=== PATIENT | female | born 1950 | race Caucasian/White ===

== ENCOUNTER 2016-10-23 12:47 | Emergency (ER) | payer OTHER ==
[~2016-10-23] VITALS: Ht 165.1 cm; Wt 97.3 kg
[~2016-10-23 12:47] MED LIST: AMLO-511 PO; HYDR-3965 PO; ISOS60TA4 PO; LEVO75 PO; LISI-660 PO; METF500T4 PO; OXYB5 PO; PANT40TA25 PO; PARO20TA24 PO; PRAV40 PO; TRAZ-147 PO
[2016-10-23 13:14] LABS: BASOPHILS # (AUTO) 0.04 K/uL (0.00-0.20); BASOPHILS % (AUTO) 0.5 % (0.0-2.0); EOSINOPHILS # (AUTO) 0.15 K/uL (0.00-0.70); EOSINOPHILS % (AUTO) 1.85 % (1.0-6.0); HEMATOCRIT 42.9 % (36-46); HEMOGLOBIN 14.1 g/dL (12.0-16.0); LYMPHOCYTES % (AUTO) 23.7 % (22.0-44.0); MEAN CORPUSCULAR HEMOGLOBIN 28.9 pg (26.0-34.0); MEAN CORPUSCULAR HGB CONC 32.8 G/dL (31.0-37.0); MEAN CORPUSCULAR VOLUME 88 fL (80-100); MONOCYTES # (AUTO) 0.3 K/uL (0.1-1.0); MONOCYTES % (AUTO) 3.9 % (2.0-9.0); NEUTROPHILS # (AUTO) 5.8 K/uL (1.8-7.7); NEUTROPHILS % (AUTO) 70.1 % (40.0-70.0); PLATELET COUNT (AUTO) 249 K/uL (150-450); RED BLOOD CELL COUNT(AUTO) 4.87 MIL/uL (4.00-5.20); RED CELL DISTRIBUTION WIDTH 15.5 % (11.5-14.5); WHITE BLOOD COUNT (AUTO) 8.3 K/uL (4.5-11.0)
[2016-10-23 13:27] LABS: ANION GAP 7 mmol/L (8-16); CALCIUM, TOTAL 8.9 mg/dL (8.8-10.5); CARBON DIOXIDE 29 mmol/L (22-29); CHLORIDE 104 mmol/L (98-107); CREATININE 1.02 mg/dL (0.60-1.30); GLOMERULAR FILTR. RATE CALC 55 mL/min (>60); POTASSIUM 4.9 mmol/L (3.5-5.1); SODIUM SERUM 140 mmol/L (136-145); UREA NITROGEN, BLOOD 20 mg/dL (7-18)
[2016-10-23 13:27] LABS: GLUCOSE,POINT OF CARE 104 MG/DL (70-110)
[2016-10-23 13:42] LABS: ALANINE AMINOTRANSFERASE 22 U/L (12-78); ALBUMIN 3.5 g/dL (3.4-5.0); ASPARTATE AMINOTRANSFERASE 13 U/L (15-37); BILIRUBIN,TOTAL 0.3 mg/dL (0.1-1.0); THYROID STIMULATING HORMONE 8.64 uIU/mL (0.36-3.74); TOTAL PROTEIN, SERUM 7.5 g/dL (6.4-8.2)
[2016-10-23] MEDS ORDERED: LEVOTHYROXINE SODIUM 125 MCG TABLET PO ONE (15:45)
[2016-10-23 18:15] VITALS: BP 158/64
== END 2016-10-23 18:17 | disposition home or self-care (01) ==
LOC: EEVIPCON 12:49 → EMS 12:49
DX: F43.22 Adjustment disorder with anxiety (principal); F32.9 Major depressive disorder, single episode, unspecified; E11.9 Type 2 diabetes mellitus without complications; I11.9 Hypertensive heart disease without heart failure; E78.00 Pure hypercholesterolemia, unspecified; E03.9 Hypothyroidism, unspecified; K21.9 Gastro-esophageal reflux disease without esophagitis; F17.210 Nicotine dependence, cigarettes, uncomplicated; Z88.0 Allergy status to penicillin; Z88.5 Allergy status to narcotic agent; Z88.8 Allergy status to other drugs, medicaments and biological substances
CPT/HCPCS: 36415; 80053; 80307; 82962; 84443; 85025; 99285; 99406; G0480

== ENCOUNTER 2017-04-11 22:25 | Inpatient (IN) | payer MEDICAID, OTHER ==
[~2017-04-11] VITALS: Ht 165.1 cm; Wt 105.7 kg
[~2017-04-11 22:25] MED LIST changes: -PRAV40 PO; +PRAV40TA4 PO
[2017-04-11] MEDS ORDERED: PNEUMOCOCCAL VACCINE POLYVALENT 0.5 ML VIAL [PPSV23] IM ONE (23:00)
[2017-04-11] MEDS ORDERED: INFLUENZA VIRUS VACCINE QVS 2017-18 (3YR+)/PF 60 MCG/0.5 ML SYRINGE IM ONE (23:00)
[2017-04-11] MEDS ORDERED: QUEtiapine FUMARATE 25 MG TABLET PO PRN (23:15)
[2017-04-11] MEDS ORDERED: ZOLPIDEM TARTRATE 10 MG TABLET PO PRN (23:15)
[2017-04-11 23:30] VITALS: BP 130/92
[2017-04-12 00:31] VITALS: BP 145/84
[2017-04-12 00:32] LABS: GLUCOSE,POINT OF CARE 176 MG/DL (70-110)
[2017-04-12] MEDS ORDERED: GLUCAGON,HUMAN RECOMBINANT 1 MG VIAL IM PRN (06:30)
[2017-04-12 07:02] LABS: GLUCOSE,POINT OF CARE 132 MG/DL (70-110)
[2017-04-12 08:33] LABS: BASOPHILS % (AUTO) 0.5 % (0.0-2.0); EOSINOPHILS % (AUTO) 1.9 % (1.0-6.0); HEMATOCRIT 44.3 % (36-46); HEMOGLOBIN 15.1 g/dL (12.0-16.0); LYMPHOCYTES # (AUTO) 2.3 K/uL (1.0-4.8); LYMPHOCYTES % (AUTO) 24.3 % (22.0-44.0); MEAN CORPUSCULAR HEMOGLOBIN 29.8 pg (26.0-34.0); MEAN CORPUSCULAR HGB CONC 34.1 G/dL (31.0-37.0); MEAN CORPUSCULAR VOLUME 87 fL (80-100); MONOCYTES # (AUTO) 0.4 K/uL (0.1-1.0); MONOCYTES % (AUTO) 4.1 % (2.0-9.0); NEUTROPHILS # (AUTO) 6.5 K/uL (1.8-7.7); NEUTROPHILS % (AUTO) 69.2 % (40.0-70.0); PLATELET COUNT (AUTO) 226 K/uL (150-450); RED BLOOD CELL COUNT(AUTO) 5.07 MIL/uL (4.00-5.20); RED CELL DISTRIBUTION WIDTH 14.8 % (11.5-14.5); WHITE BLOOD COUNT (AUTO) 9.4 K/uL (4.5-11.0)
[2017-04-12 08:36] VITALS: BP 123/68
[2017-04-12] MEDS ORDERED: PARoxetine HCL 10 MG TABLET PO SCH (09:00)
[2017-04-12 09:01] LABS: HEMOGLOBIN A1C 5.8 % (4.5-6.2)
[2017-04-12 09:37] LABS: ALANINE AMINOTRANSFERASE 21 U/L (12-78); ALBUMIN 3.4 g/dL (3.4-5.0); ANION GAP 7 mmol/L (8-16); ASPARTATE AMINOTRANSFERASE 12 U/L (15-37); BILIRUBIN,TOTAL 0.3 mg/dL (0.1-1.0); CARBON DIOXIDE 28 mmol/L (22-29); CHLORIDE 102 mmol/L (98-107); CHOL/HDL RATIO 3.3 (3.9-5.7); CREATININE 0.93 mg/dL (0.60-1.30); GLOMERULAR FILTR. RATE CALC > 60 mL/min (>60); SODIUM SERUM 137 mmol/L (136-145); THYROID STIMULATING HORMONE 4.93 uIU/mL (0.36-3.74); UREA NITROGEN, BLOOD 34 mg/dL (7-18)
[2017-04-12 11:18] LABS: GLUCOSE,POINT OF CARE 103 MG/DL (70-110)
[2017-04-12] MEDS ORDERED: HydrOXYzine PAMOATE 50 MG CAPSULE PO PRN (13:00)
[2017-04-12] MEDS ORDERED: PROMETHAZINE HCL 25 MG TABLET PO PRN (13:00)
[2017-04-12] MEDS ORDERED: TUBERCULIN, PURIFIED PROTEIN DERIVATIVE 5 TU/0.1 ML SYG ID ONE (13:00)
[2017-04-12] MEDS ORDERED: MAGNESIUM HYDROXIDE SUSPENSION 30 ML UDCUP PO PRN (13:00)
[2017-04-12] MEDS ORDERED: GuaiFENesin/D-METHORPHAN [SUGAR-FREE] 200-20MG/10 ML SYRUP UDCUP PO PRN (13:00)
[2017-04-12] MEDS ORDERED: LOPERAMIDE HCL 2 MG CAPSULE PO PRN (13:00)
[2017-04-12] MEDS ORDERED: OLANZapine 5 MG RAPDIS TABLET PO PRN (13:00)
[2017-04-12] MEDS ORDERED: MAG HYDROX/AL HYDROX/SIMETH ES 30 ML SUSPENSION UDCUP PO PRN (13:00)
[2017-04-12 16:10] VITALS: BP 135/75
[2017-04-12] MEDS: THIAMINE HCL 100 MG TABLET PO SCH (16:50)
[2017-04-12 16:57] LABS: GLUCOSE,POINT OF CARE 117 MG/DL (70-110)
[2017-04-12] MEDS: TraZODone HCL 50 MG TABLET PO SCH (20:43)
[2017-04-12] MEDS ORDERED: OLANZapine 5 MG RAPDIS TABLET PO SCH (21:00)
[2017-04-13 00:11] LABS: GLUCOSE,POINT OF CARE 116 MG/DL (70-110)
[2017-04-13 00:30] VITALS: BP 143/69
[2017-04-13 06:42] LABS: GLUCOSE,POINT OF CARE 130 MG/DL (70-110)
[2017-04-13 08:16] VITALS: BP 156/87
[2017-04-13] MEDS: FOLIC ACID 1 MG TABLET PO SCH (08:43)
[2017-04-13] MEDS: MULTIVITAMINS WITH MINERALS, THERAPEUTIC TABLET PO SCH (08:43)
[2017-04-13] MEDS: THIAMINE HCL 100 MG TABLET PO SCH ×2 (08:43→16:22)
[2017-04-13] MEDS ORDERED: PARoxetine HCL 20 MG TABLET PO SCH (09:00)
[2017-04-13] MEDS ORDERED: ARIPiprazole 5 MG TABLET PO SCH (09:00)
[2017-04-13 11:02] LABS: GLUCOSE,POINT OF CARE 103 MG/DL (70-110)
[2017-04-13 16:45] VITALS: BP 154/83
[2017-04-13 16:52] LABS: GLUCOSE,POINT OF CARE 118 MG/DL (70-110)
[2017-04-13] MEDS: ARIPiprazole 5 MG TABLET PO SCH (20:29)
[2017-04-13] MEDS: TraZODone HCL 50 MG TABLET PO SCH (20:30)
[2017-04-13] MEDS ORDERED: PARoxetine HCL 10 MG TABLET PO SCH (21:00)
[2017-04-13] MEDS: LORazepam 1 MG TABLET PO PRN (23:58)
[2017-04-14] VITALS (13 sets, daily range): BP systolic 104–159; BP diastolic 60–98
[2017-04-14 06:18] LABS: GLUCOSE,POINT OF CARE 134 MG/DL (70-110)
[2017-04-14] MEDS: MULTIVITAMINS WITH MINERALS, THERAPEUTIC TABLET PO SCH (08:15)
[2017-04-14] MEDS: THIAMINE HCL 100 MG TABLET PO SCH ×2 (08:15→16:48)
[2017-04-14] MEDS: FOLIC ACID 1 MG TABLET PO SCH (08:15)
[2017-04-14 16:42] LABS: GLUCOSE,POINT OF CARE 135 MG/DL (70-110)
[2017-04-14] MEDS: ACETAMINOPHEN 325 MG TABLET PO PRN (20:49)
[2017-04-14] MEDS: PARoxetine HCL 10 MG TABLET PO SCH (20:49)
[2017-04-14] MEDS: TraZODone HCL 50 MG TABLET PO SCH (20:50)
[2017-04-14] MEDS: ARIPiprazole 5 MG TABLET PO SCH (20:50)
[2017-04-15] VITALS (8 sets, daily range): BP systolic 129–152; BP diastolic 76–90
[2017-04-15] MEDS: ACETAMINOPHEN 325 MG TABLET PO PRN (07:06)
[2017-04-15] MEDS: FOLIC ACID 1 MG TABLET PO SCH (08:31)
[2017-04-15] MEDS: MULTIVITAMINS WITH MINERALS, THERAPEUTIC TABLET PO SCH (08:31)
[2017-04-15] MEDS: THIAMINE HCL 100 MG TABLET PO SCH ×2 (08:31→16:04)
[2017-04-15 08:38] LABS: GLUCOSE,POINT OF CARE 125 MG/DL (70-110)
[2017-04-15 16:28] LABS: GLUCOSE,POINT OF CARE 115 MG/DL (70-110)
[2017-04-15] MEDS: ARIPiprazole 10 MG TABLET PO SCH (20:34)
[2017-04-15] MEDS: TraZODone HCL 50 MG TABLET PO SCH (20:34)
[2017-04-15] MEDS: PARoxetine HCL 10 MG TABLET PO SCH (20:34)
[2017-04-15] MEDS: IBUPROFEN 600 MG TABLET PO PRN (22:09)
[2017-04-16 06:15] VITALS: BP 150/91
[2017-04-16] MEDS: ACETAMINOPHEN 325 MG TABLET PO PRN (06:22)
[2017-04-16 07:02] LABS: GLUCOSE,POINT OF CARE 126 MG/DL (70-110)
[2017-04-16 08:58] VITALS: BP 148/88
[2017-04-16] MEDS: MULTIVITAMINS WITH MINERALS, THERAPEUTIC TABLET PO SCH (11:00)
[2017-04-16] MEDS: THIAMINE HCL 100 MG TABLET PO SCH ×2 (11:00→16:04)
[2017-04-16] MEDS: FOLIC ACID 1 MG TABLET PO SCH (11:01)
[2017-04-16 12:14] LABS: GLUCOSE,POINT OF CARE 144 MG/DL (70-110)
[2017-04-16 16:15] VITALS: BP 136/76
[2017-04-16 16:33] LABS: GLUCOSE,POINT OF CARE 143 MG/DL (70-110)
[2017-04-16] MEDS: INSULIN ASPART 100 UNITS/ML SQ PRN (16:43)
[2017-04-16] MEDS: PARoxetine HCL 10 MG TABLET PO SCH (20:07)
[2017-04-16] MEDS: TraZODone HCL 50 MG TABLET PO SCH (20:07)
[2017-04-16] MEDS: ARIPiprazole 10 MG TABLET PO SCH (20:07)
[2017-04-17 07:00] VITALS: BP 144/104
[2017-04-17 07:02] VITALS: BP 155/78
[2017-04-17 07:43] LABS: GLUCOSE,POINT OF CARE 116 MG/DL (70-110)
[2017-04-17 08:58] VITALS: BP 146/75
[2017-04-17] MEDS: MULTIVITAMINS WITH MINERALS, THERAPEUTIC TABLET PO SCH (10:20)
[2017-04-17] MEDS: THIAMINE HCL 100 MG TABLET PO SCH ×2 (10:20→16:00)
[2017-04-17] MEDS: FOLIC ACID 1 MG TABLET PO SCH (10:20)
[2017-04-17] MEDS: LISINOPRIL 20 MG TABLET PO SCH (10:40)
[2017-04-17] MEDS: ASPIRIN 81 MG EC TABLET PO SCH (15:59)
[2017-04-17] MEDS: INSULIN ASPART 100 UNITS/ML SQ PRN (16:13)
[2017-04-17 16:17] VITALS: BP 120/66
[2017-04-17 16:18] LABS: GLUCOSE,POINT OF CARE 144 MG/DL (70-110)
[2017-04-17] MEDS: PARoxetine HCL 10 MG TABLET PO SCH (20:47)
[2017-04-17] MEDS: TraZODone HCL 50 MG TABLET PO SCH (20:47)
[2017-04-17] MEDS: ARIPiprazole 10 MG TABLET PO SCH (20:47)
[2017-04-18 05:53] VITALS: BP 130/75
[2017-04-18 07:04] LABS: GLUCOSE,POINT OF CARE 116 MG/DL (70-110)
[2017-04-18 08:17] VITALS: BP 155/86
[2017-04-18] MEDS: ASPIRIN 81 MG EC TABLET PO SCH (08:51)
[2017-04-18] MEDS: MULTIVITAMINS WITH MINERALS, THERAPEUTIC TABLET PO SCH (08:51)
[2017-04-18] MEDS: FOLIC ACID 1 MG TABLET PO SCH (08:52)
[2017-04-18] MEDS: LISINOPRIL 20 MG TABLET PO SCH (08:52)
[2017-04-18] MEDS: THIAMINE HCL 100 MG TABLET PO SCH ×2 (08:52→16:18)
[2017-04-18] MEDS: IBUPROFEN 600 MG TABLET PO PRN ×2 (09:04→16:30)
[2017-04-18] MEDS: AmLODIPine BESYLATE 5 MG TABLET PO SCH (13:08)
[2017-04-18] MEDS: PANTOPRAZOLE SODIUM 40 MG DR TABLET PO SCH (13:09)
[2017-04-18] MEDS: MetFORMIN HCL 500 MG TABLET PO SCH (16:18)
[2017-04-18] MEDS: OXYBUTYNIN CHLORIDE 5 MG TABLET PO SCH (16:18)
[2017-04-18 16:30] VITALS: BP 136/82
[2017-04-18 16:38] LABS: GLUCOSE,POINT OF CARE 157 MG/DL (70-110)
[2017-04-18 16:49] VITALS: BP 133/83
[2017-04-18] MEDS: INSULIN ASPART 100 UNITS/ML SQ PRN (16:55)
[2017-04-18] MEDS: TraZODone HCL 50 MG TABLET PO SCH (20:30)
[2017-04-18] MEDS: ARIPiprazole 10 MG TABLET PO SCH (20:30)
[2017-04-18] MEDS: PARoxetine HCL 10 MG TABLET PO SCH (20:31)
[2017-04-18] MEDS: PRAVASTATIN SODIUM 40 MG TABLET PO SCH (21:18)
[2017-04-19 06:27] LABS: GLUCOSE,POINT OF CARE 89 MG/DL (70-110)
[2017-04-19 06:30] VITALS: BP 148/86
[2017-04-19] MEDS: LEVOTHYROXINE SODIUM 75 MCG TABLET PO SCH (06:47)
[2017-04-19] MEDS: MetFORMIN HCL 500 MG TABLET PO SCH ×2 (06:47→17:57)
[2017-04-19 08:34] VITALS: BP 134/81
[2017-04-19] MEDS: MULTIVITAMINS WITH MINERALS, THERAPEUTIC TABLET PO SCH (09:01)
[2017-04-19] MEDS: LISINOPRIL 20 MG TABLET PO SCH (09:01)
[2017-04-19] MEDS: FOLIC ACID 1 MG TABLET PO SCH (09:01)
[2017-04-19] MEDS: PANTOPRAZOLE SODIUM 40 MG DR TABLET PO SCH (09:01)
[2017-04-19] MEDS: AmLODIPine BESYLATE 5 MG TABLET PO SCH (09:01)
[2017-04-19] MEDS: ASPIRIN 81 MG EC TABLET PO SCH (09:02)
[2017-04-19] MEDS: OXYBUTYNIN CHLORIDE 5 MG TABLET PO SCH ×2 (09:02→17:57)
[2017-04-19] MEDS: THIAMINE HCL 100 MG TABLET PO SCH ×2 (09:02→17:57)
[2017-04-19 16:08] VITALS: BP 132/67
[2017-04-19 18:22] LABS: GLUCOSE,POINT OF CARE 97 MG/DL (70-110)
[2017-04-19] MEDS: ARIPiprazole 15 MG TABLET PO SCH (20:46)
[2017-04-19] MEDS: PRAVASTATIN SODIUM 40 MG TABLET PO SCH (20:46)
[2017-04-19] MEDS: TraZODone HCL 50 MG TABLET PO SCH (20:46)
[2017-04-19] MEDS: PARoxetine HCL 10 MG TABLET PO SCH (20:47)
[2017-04-20 06:17] LABS: GLUCOSE,POINT OF CARE 108 MG/DL (70-110)
[2017-04-20 06:20] VITALS: BP 140/78
[2017-04-20] MEDS: LORazepam 1 MG TABLET PO PRN (06:24)
[2017-04-20] MEDS: LEVOTHYROXINE SODIUM 75 MCG TABLET PO SCH (06:27)
[2017-04-20] MEDS: MetFORMIN HCL 500 MG TABLET PO SCH ×2 (06:27→16:57)
[2017-04-20 09:42] VITALS: BP 144/79
[2017-04-20] MEDS: MULTIVITAMINS WITH MINERALS, THERAPEUTIC TABLET PO SCH (10:12)
[2017-04-20] MEDS: PANTOPRAZOLE SODIUM 40 MG DR TABLET PO SCH (10:12)
[2017-04-20] MEDS: OXYBUTYNIN CHLORIDE 5 MG TABLET PO SCH ×2 (10:12→16:57)
[2017-04-20] MEDS: LISINOPRIL 20 MG TABLET PO SCH (10:12)
[2017-04-20] MEDS: FOLIC ACID 1 MG TABLET PO SCH (10:12)
[2017-04-20] MEDS: ASPIRIN 81 MG EC TABLET PO SCH (10:12)
[2017-04-20] MEDS: AmLODIPine BESYLATE 5 MG TABLET PO SCH (10:13)
[2017-04-20] MEDS: THIAMINE HCL 100 MG TABLET PO SCH ×2 (10:42→16:57)
[2017-04-20] MEDS: INSULIN ASPART 100 UNITS/ML SQ PRN (17:04)
[2017-04-20 17:17] LABS: GLUCOSE,POINT OF CARE 151 MG/DL (70-110)
[2017-04-20 17:50] VITALS: BP 129/79
[2017-04-20] MEDS: PARoxetine HCL 20 MG TABLET PO SCH (21:02)
[2017-04-20] MEDS: PRAVASTATIN SODIUM 40 MG TABLET PO SCH (21:02)
[2017-04-20] MEDS: ARIPiprazole 15 MG TABLET PO SCH (21:02)
[2017-04-20] MEDS: TraZODone HCL 50 MG TABLET PO SCH (21:02)
[2017-04-21 06:23] VITALS: BP 140/71
[2017-04-21 06:23] LABS: GLUCOSE,POINT OF CARE 105 MG/DL (70-110)
[2017-04-21] MEDS: MetFORMIN HCL 500 MG TABLET PO SCH ×2 (06:34→17:01)
[2017-04-21] MEDS: LEVOTHYROXINE SODIUM 75 MCG TABLET PO SCH (06:34)
[2017-04-21] MEDS: OXYBUTYNIN CHLORIDE 5 MG TABLET PO SCH ×2 (08:13→17:01)
[2017-04-21] MEDS: MULTIVITAMINS WITH MINERALS, THERAPEUTIC TABLET PO SCH (08:13)
[2017-04-21] MEDS: THIAMINE HCL 100 MG TABLET PO SCH ×2 (08:13→17:01)
[2017-04-21] MEDS: LISINOPRIL 20 MG TABLET PO SCH (08:13)
[2017-04-21] MEDS: AmLODIPine BESYLATE 5 MG TABLET PO SCH (08:13)
[2017-04-21] MEDS: ASPIRIN 81 MG EC TABLET PO SCH (08:13)
[2017-04-21] MEDS: FOLIC ACID 1 MG TABLET PO SCH (08:13)
[2017-04-21] MEDS: PANTOPRAZOLE SODIUM 40 MG DR TABLET PO SCH (08:14)
[2017-04-21 08:24] VITALS: BP 125/75
[2017-04-21] MEDS ORDERED: PARO-37 PO (11:04)
[2017-04-21] MEDS ORDERED: TRAZ-144 PO (11:04)
[2017-04-21] MEDS ORDERED: ARIP15TA2 PO (11:04)
[2017-04-21 16:29] VITALS: BP 145/81
[2017-04-21 17:07] LABS: GLUCOSE,POINT OF CARE 103 MG/DL (70-110)
[2017-04-21] MEDS: TraZODone HCL 50 MG TABLET PO SCH (20:32)
[2017-04-21] MEDS: PRAVASTATIN SODIUM 40 MG TABLET PO SCH (20:32)
[2017-04-21] MEDS: ARIPiprazole 15 MG TABLET PO SCH (20:32)
[2017-04-21] MEDS: PARoxetine HCL 20 MG TABLET PO SCH (20:32)
[2017-04-21] MEDS: IBUPROFEN 600 MG TABLET PO PRN (23:59)
[2017-04-22 00:45] VITALS: BP 136/83
[2017-04-22 06:08] VITALS: BP 128/71
[2017-04-22] MEDS: LEVOTHYROXINE SODIUM 75 MCG TABLET PO SCH (06:58)
[2017-04-22] MEDS: MetFORMIN HCL 500 MG TABLET PO SCH ×2 (06:58→17:08)
[2017-04-22 07:03] LABS: GLUCOSE,POINT OF CARE 89 MG/DL (70-110)
[2017-04-22 08:10] VITALS: BP 148/81
[2017-04-22] MEDS ORDERED: LISI-662 PO (09:08)
[2017-04-22] MEDS ORDERED: MULT-959 PO (09:08)
[2017-04-22] MEDS ORDERED: ASPI-1182 PO (09:08)
[2017-04-22] MEDS: FOLIC ACID 1 MG TABLET PO SCH (09:10)
[2017-04-22] MEDS: PANTOPRAZOLE SODIUM 40 MG DR TABLET PO SCH (09:10)
[2017-04-22] MEDS: LISINOPRIL 20 MG TABLET PO SCH (09:10)
[2017-04-22] MEDS: THIAMINE HCL 100 MG TABLET PO SCH (09:10)
[2017-04-22] MEDS: MULTIVITAMINS WITH MINERALS, THERAPEUTIC TABLET PO SCH (09:10)
[2017-04-22] MEDS: OXYBUTYNIN CHLORIDE 5 MG TABLET PO SCH ×2 (09:10→17:09)
[2017-04-22] MEDS: AmLODIPine BESYLATE 5 MG TABLET PO SCH (09:10)
[2017-04-22] MEDS: ASPIRIN 81 MG EC TABLET PO SCH (09:10)
[2017-04-22 16:00] VITALS: BP 130/72
[2017-04-22 17:12] LABS: GLUCOSE,POINT OF CARE 101 MG/DL (70-110)
[2017-04-22] MEDS: PRAVASTATIN SODIUM 40 MG TABLET PO SCH (20:42)
[2017-04-22] MEDS: PARoxetine HCL 20 MG TABLET PO SCH (20:43)
[2017-04-22] MEDS: TraZODone HCL 50 MG TABLET PO SCH (20:43)
[2017-04-22] MEDS: ARIPiprazole 15 MG TABLET PO SCH (20:43)
[2017-04-23 06:25] VITALS: BP 141/89
[2017-04-23] MEDS: MetFORMIN HCL 500 MG TABLET PO SCH ×2 (06:59→16:17)
[2017-04-23] MEDS: LEVOTHYROXINE SODIUM 75 MCG TABLET PO SCH (06:59)
[2017-04-23 07:12] LABS: GLUCOSE,POINT OF CARE 120 MG/DL (70-110)
[2017-04-23 09:38] VITALS: BP 131/79
[2017-04-23] MEDS: AmLODIPine BESYLATE 5 MG TABLET PO SCH (09:46)
[2017-04-23] MEDS: MULTIVITAMINS WITH MINERALS, THERAPEUTIC TABLET PO SCH (09:46)
[2017-04-23] MEDS: ASPIRIN 81 MG EC TABLET PO SCH (09:47)
[2017-04-23] MEDS: LISINOPRIL 20 MG TABLET PO SCH (09:47)
[2017-04-23] MEDS: PANTOPRAZOLE SODIUM 40 MG DR TABLET PO SCH (09:47)
[2017-04-23] MEDS: OXYBUTYNIN CHLORIDE 5 MG TABLET PO SCH ×2 (09:47→16:17)
[2017-04-23 16:18] VITALS: BP 125/77
[2017-04-23 16:47] LABS: GLUCOSE,POINT OF CARE 138 MG/DL (70-110)
[2017-04-23] MEDS: ARIPiprazole 15 MG TABLET PO SCH (20:03)
[2017-04-23] MEDS: PRAVASTATIN SODIUM 40 MG TABLET PO SCH (20:03)
[2017-04-23] MEDS: TraZODone HCL 50 MG TABLET PO SCH (20:03)
[2017-04-23] MEDS: PARoxetine HCL 20 MG TABLET PO SCH (20:03)
[2017-04-24 04:26] VITALS: BP 128/75
[2017-04-24 06:22] LABS: GLUCOSE,POINT OF CARE 111 MG/DL (70-110)
[2017-04-24] MEDS: LEVOTHYROXINE SODIUM 75 MCG TABLET PO SCH (06:34)
[2017-04-24] MEDS: MetFORMIN HCL 500 MG TABLET PO SCH ×2 (06:34→16:19)
[2017-04-24] MEDS: ASPIRIN 81 MG EC TABLET PO SCH (08:33)
[2017-04-24] MEDS: MULTIVITAMINS WITH MINERALS, THERAPEUTIC TABLET PO SCH (08:33)
[2017-04-24] MEDS: AmLODIPine BESYLATE 5 MG TABLET PO SCH (08:33)
[2017-04-24] MEDS: LISINOPRIL 20 MG TABLET PO SCH (08:33)
[2017-04-24] MEDS: PANTOPRAZOLE SODIUM 40 MG DR TABLET PO SCH (08:33)
[2017-04-24] MEDS: OXYBUTYNIN CHLORIDE 5 MG TABLET PO SCH ×2 (08:33→16:19)
[2017-04-24 08:46] VITALS: BP 142/89
[2017-04-24 16:50] VITALS: BP 124/76
[2017-04-24 16:53] LABS: GLUCOSE,POINT OF CARE 136 MG/DL (70-110)
[2017-04-24] MEDS: TraZODone HCL 50 MG TABLET PO SCH (20:38)
[2017-04-24] MEDS: ARIPiprazole 15 MG TABLET PO SCH (20:38)
[2017-04-24] MEDS: PARoxetine HCL 20 MG TABLET PO SCH (20:38)
[2017-04-24] MEDS: PRAVASTATIN SODIUM 40 MG TABLET PO SCH (20:38)
[2017-04-25 06:31] VITALS: BP 148/90
[2017-04-25] MEDS: LEVOTHYROXINE SODIUM 75 MCG TABLET PO SCH (06:56)
[2017-04-25] MEDS: LORazepam 1 MG TABLET PO PRN (07:05)
[2017-04-25] MEDS: MetFORMIN HCL 500 MG TABLET PO SCH (07:07)
[2017-04-25 07:33] VITALS: BP 138/83
[2017-04-25 07:37] LABS: GLUCOSE,POINT OF CARE 111 MG/DL (70-110)
[2017-04-25 08:15] VITALS: BP 157/77
[2017-04-25] MEDS: MULTIVITAMINS WITH MINERALS, THERAPEUTIC TABLET PO SCH (08:41)
[2017-04-25] MEDS: OXYBUTYNIN CHLORIDE 5 MG TABLET PO SCH (08:41)
[2017-04-25] MEDS: LISINOPRIL 20 MG TABLET PO SCH (08:42)
[2017-04-25] MEDS: PANTOPRAZOLE SODIUM 40 MG DR TABLET PO SCH (08:42)
[2017-04-25] MEDS: ASPIRIN 81 MG EC TABLET PO SCH (08:42)
[2017-04-25] MEDS: AmLODIPine BESYLATE 5 MG TABLET PO SCH (08:42)
[2017-04-25 10:59] VITALS: BP 132/83
== END 2017-04-25 18:08 | disposition home or self-care (01) | DRG 750 ==
LOC: B2S 23:12 → EDSTATUS 23:16 → B2S 04-16 08:12
PROVIDERS: ADMIT Psychiatry & Neurology Psychiatry; ATTEND Psychiatry & Neurology Psychiatry
DX: F25.1 Schizoaffective disorder, depressive type (principal); E11.9 Type 2 diabetes mellitus without complications; I10 Essential (primary) hypertension; E03.9 Hypothyroidism, unspecified; E78.00 Pure hypercholesterolemia, unspecified; F17.210 Nicotine dependence, cigarettes, uncomplicated; G47.00 Insomnia, unspecified; R32 Unspecified urinary incontinence; Z59.0 Homelessness; Z65.3 Problems related to other legal circumstances; Z68.38 Body mass index [BMI] 38.0-38.9, adult; Z79.84 Long term (current) use of oral hypoglycemic drugs; Z79.899 Other long term (current) drug therapy; Z88.0 Allergy status to penicillin; Z91.19 Patient's noncompliance with other medical treatment and regimen; Z99.3 Dependence on wheelchair; Z88.1 Allergy status to other antibiotic agents; Z88.5 Allergy status to narcotic agent; Z88.8 Allergy status to other drugs, medicaments and biological substances; Z28.21 Immunization not carried out because of patient refusal
CPT/HCPCS: 82962; 83036; 84439; 84443; 90471; 99285

== ENCOUNTER 2017-04-28 22:38 | Inpatient (IN) | payer MEDICAID ==
[~2017-04-28] VITALS: Ht 165.1 cm; Wt 105.2 kg
[~2017-04-28 22:38] MED LIST changes: +ARIP15TA2 PO; +ASPI-1182 PO; -HYDR-3965 PO; -ISOS60TA4 PO; -LISI-660 PO; +LISI-662 PO; -PANT40TA25 PO; +PARO-37 PO; -PARO20TA24 PO; +TRAZ-144 PO; -TRAZ-147 PO
[2017-04-28 23:40] VITALS: BP 122/60
[2017-04-29] MEDS ORDERED: QUEtiapine FUMARATE 100 MG TABLET PO PRN (00:15)
[2017-04-29] MEDS ORDERED: LORazepam 2 MG TABLET PO PRN (00:15)
[2017-04-29] MEDS ORDERED: ZOLPIDEM TARTRATE 10 MG TABLET PO PRN (00:15)
[2017-04-29] MEDS ORDERED: PNEUMOCOCCAL VACCINE POLYVALENT 0.5 ML VIAL [PPSV23] IM ONE (01:00)
[2017-04-29 02:39] VITALS: BP 144/93
[2017-04-29 05:58] LABS: GLUCOSE,POINT OF CARE 102 MG/DL (70-110)
[2017-04-29] MEDS ORDERED: LEVOTHYROXINE SODIUM 75 MCG TABLET PO ONE (06:30)
[2017-04-29] MEDS ORDERED: DEXTROSE 50%-WATER 25 GM/50 ML SYRINGE IVP PRN (06:30)
[2017-04-29 08:05] VITALS: BP 154/97
[2017-04-29] MEDS: AmLODIPine BESYLATE 5 MG TABLET PO SCH (08:31)
[2017-04-29] MEDS: ASPIRIN 81 MG CHEWABLE TABLET PO SCH (08:31)
[2017-04-29] MEDS: OXYBUTYNIN CHLORIDE 5 MG TABLET PO SCH ×2 (08:31→16:16)
[2017-04-29] MEDS: LISINOPRIL 20 MG TABLET PO SCH (08:31)
[2017-04-29] MEDS: MetFORMIN HCL 500 MG TABLET PO SCH ×2 (08:32→17:30)
[2017-04-29 10:00] VITALS: BP 132/87
[2017-04-29 16:27] LABS: GLUCOSE,POINT OF CARE 116 MG/DL (70-110)
[2017-04-29 16:41] VITALS: BP 152/67
[2017-04-29] MEDS: PRAVASTATIN SODIUM 40 MG TABLET PO SCH (20:59)
[2017-04-29] MEDS: TraZODone HCL 50 MG TABLET PO SCH (21:01)
[2017-04-29] MEDS: ARIPiprazole 5 MG TABLET PO SCH (21:01)
[2017-04-29] MEDS: PARoxetine HCL 20 MG TABLET PO SCH (21:01)
[2017-04-30 03:06] VITALS: BP 138/93
[2017-04-30 06:13] LABS: GLUCOSE,POINT OF CARE 122 MG/DL (70-110)
[2017-04-30] MEDS: MetFORMIN HCL 500 MG TABLET PO SCH ×2 (06:54→17:39)
[2017-04-30 07:16] LABS: BASOPHILS % (AUTO) 0.6 % (0.0-2.0); EOSINOPHILS % (AUTO) 2.7 % (1.0-6.0); LYMPHOCYTES # (AUTO) 2.2 K/uL (1.0-4.8); LYMPHOCYTES % (AUTO) 24.1 % (22.0-44.0); MEAN CORPUSCULAR HGB CONC 34.2 G/dL (31.0-37.0); MEAN CORPUSCULAR VOLUME 88 fL (80-100); MONOCYTES # (AUTO) 0.4 K/uL (0.1-1.0); NEUTROPHILS # (AUTO) 6.3 K/uL (1.8-7.7); NEUTROPHILS % (AUTO) 68.6 % (40.0-70.0); PLATELET COUNT (AUTO) 226 K/uL (150-450); RED BLOOD CELL COUNT(AUTO) 4.67 MIL/uL (4.00-5.20); RED CELL DISTRIBUTION WIDTH 14.8 % (11.5-14.5); WHITE BLOOD COUNT (AUTO) 9.2 K/uL (4.5-11.0)
[2017-04-30 07:34] LABS: ALBUMIN 3.2 g/dL (3.4-5.0); BILIRUBIN,TOTAL 0.3 mg/dL (0.1-1.0); CALCIUM, TOTAL 8.8 mg/dL (8.8-10.5); CREATININE 1.01 mg/dL (0.60-1.30); POTASSIUM 4.2 mmol/L (3.5-5.1); THYROID STIMULATING HORMONE 5.87 uIU/mL (0.36-3.74); TOTAL PROTEIN, SERUM 6.6 g/dL (6.4-8.2)
[2017-04-30] MEDS: LISINOPRIL 20 MG TABLET PO SCH (09:02)
[2017-04-30] MEDS: ASPIRIN 81 MG CHEWABLE TABLET PO SCH (09:02)
[2017-04-30] MEDS: OXYBUTYNIN CHLORIDE 5 MG TABLET PO SCH ×2 (09:03→16:11)
[2017-04-30] MEDS: AmLODIPine BESYLATE 5 MG TABLET PO SCH (09:03)
[2017-04-30 10:06] VITALS: BP 136/90
[2017-04-30 16:30] VITALS: BP 141/71
[2017-04-30 17:28] LABS: GLUCOSE,POINT OF CARE 106 MG/DL (70-110)
[2017-04-30] MEDS: PRAVASTATIN SODIUM 40 MG TABLET PO SCH (21:45)
[2017-04-30] MEDS: TraZODone HCL 50 MG TABLET PO SCH (21:45)
[2017-04-30] MEDS: PARoxetine HCL 20 MG TABLET PO SCH (21:45)
[2017-04-30] MEDS: ARIPiprazole 5 MG TABLET PO SCH (21:45)
[2017-05-01] VITALS: BP 149/70
[2017-05-01 05:43] LABS: GLUCOSE,POINT OF CARE 110 MG/DL (70-110)
[2017-05-01 06:55] LABS: APPEARANCE,URINE CLEAR (CLEAR); GLUCOSE, URINE (UA) NEGATIVE (NEGATIVE); KETONES,URINE NEGATIVE (NEGATIVE); LEUKOCYTE ESTERASE ,URINE TRACE (NEGATIVE); OCCULT BLOOD,URINE NEGATIVE (NEGATIVE); PROTEIN,URINE NEGATIVE (NEGATIVE)
[2017-05-01] MEDS: MetFORMIN HCL 500 MG TABLET PO SCH ×2 (07:00→16:13)
[2017-05-01 07:04] LABS: ADD UA MICROSCOPIC YES
[2017-05-01 07:05] LABS: RBC,URINE None Seen /HPF (0-2); WBC,URINE 0-2 /HPF (0-5)
[2017-05-01 08:00] VITALS: BP 128/80
[2017-05-01] MEDS: AmLODIPine BESYLATE 5 MG TABLET PO SCH (08:05)
[2017-05-01] MEDS: LISINOPRIL 20 MG TABLET PO SCH (08:05)
[2017-05-01] MEDS: ASPIRIN 81 MG CHEWABLE TABLET PO SCH (08:05)
[2017-05-01] MEDS: OXYBUTYNIN CHLORIDE 5 MG TABLET PO SCH ×2 (08:06→16:11)
[2017-05-01 16:23] LABS: GLUCOSE COMMENT 1 Received Meds; GLUCOSE COMMENT 2 FASTING; GLUCOSE,POINT OF CARE 102 MG/DL (70-110)
[2017-05-01 16:30] VITALS: BP 148/67
[2017-05-01] MEDS: PRAVASTATIN SODIUM 40 MG TABLET PO SCH (20:53)
[2017-05-01] MEDS: ARIPiprazole 5 MG TABLET PO SCH (20:53)
[2017-05-01] MEDS: PARoxetine HCL 20 MG TABLET PO SCH (20:53)
[2017-05-01] MEDS: TraZODone HCL 50 MG TABLET PO SCH (20:53)
[2017-05-02 05:15] VITALS: BP 140/86
[2017-05-02 06:23] LABS: GLUCOSE,POINT OF CARE 89 MG/DL (70-110)
[2017-05-02] MEDS: INSULIN ASPART 100 UNITS/ML SQ PRN (06:59)
[2017-05-02] MEDS: MetFORMIN HCL 500 MG TABLET PO SCH ×2 (07:01→17:19)
[2017-05-02 09:00] VITALS: BP 152/75
[2017-05-02] MEDS: AmLODIPine BESYLATE 5 MG TABLET PO SCH (09:13)
[2017-05-02] MEDS: LISINOPRIL 20 MG TABLET PO SCH (09:13)
[2017-05-02] MEDS: ASPIRIN 81 MG CHEWABLE TABLET PO SCH (09:14)
[2017-05-02] MEDS: OXYBUTYNIN CHLORIDE 5 MG TABLET PO SCH ×2 (09:14→16:38)
[2017-05-02] MEDS ORDERED: ACETAMINOPHEN 325 MG TABLET PO PRN (13:00)
[2017-05-02] MEDS ORDERED: GuaiFENesin/D-METHORPHAN [SUGAR-FREE] 200-20MG/10 ML SYRUP UDCUP PO PRN (13:00)
[2017-05-02] MEDS ORDERED: HydrOXYzine PAMOATE 50 MG CAPSULE PO PRN (13:00)
[2017-05-02] MEDS ORDERED: PROMETHAZINE HCL 25 MG TABLET PO PRN (13:00)
[2017-05-02] MEDS ORDERED: MAGNESIUM HYDROXIDE SUSPENSION 30 ML UDCUP PO PRN (13:00)
[2017-05-02] MEDS ORDERED: LOPERAMIDE HCL 2 MG CAPSULE PO PRN (13:00)
[2017-05-02] MEDS ORDERED: MAG HYDROX/AL HYDROX/SIMETH ES 30 ML SUSPENSION UDCUP PO PRN (13:00)
[2017-05-02] MEDS: THIAMINE HCL 100 MG TABLET PO SCH (16:38)
[2017-05-02 16:43] LABS: GLUCOSE COMMENT 1 Received Meds; GLUCOSE,POINT OF CARE 106 MG/DL (70-110)
[2017-05-02 16:49] VITALS: BP 138/76
[2017-05-02] MEDS: ARIPiprazole 15 MG TABLET PO SCH (20:31)
[2017-05-02] MEDS: PRAVASTATIN SODIUM 40 MG TABLET PO SCH (20:31)
[2017-05-02] MEDS: TraZODone HCL 50 MG TABLET PO SCH (20:31)
[2017-05-02] MEDS ORDERED: PARoxetine HCL 20 MG TABLET PO SCH (21:00)
[2017-05-03 06:22] LABS: GLUCOSE,POINT OF CARE 109 MG/DL (70-110)
[2017-05-03] MEDS: MetFORMIN HCL 500 MG TABLET PO SCH ×2 (07:03→17:32)
[2017-05-03 08:00] VITALS: BP 158/89
[2017-05-03] MEDS: ASPIRIN 81 MG CHEWABLE TABLET PO SCH (09:27)
[2017-05-03] MEDS: MULTIVITAMINS WITH MINERALS, THERAPEUTIC TABLET PO SCH (09:28)
[2017-05-03] MEDS: AmLODIPine BESYLATE 5 MG TABLET PO SCH (09:28)
[2017-05-03] MEDS: LISINOPRIL 20 MG TABLET PO SCH (09:28)
[2017-05-03] MEDS: OXYBUTYNIN CHLORIDE 5 MG TABLET PO SCH ×2 (09:28→16:17)
[2017-05-03] MEDS: FOLIC ACID 1 MG TABLET PO SCH (09:28)
[2017-05-03] MEDS: THIAMINE HCL 100 MG TABLET PO SCH ×2 (09:29→16:17)
[2017-05-03 16:21] LABS: GLUCOSE,POINT OF CARE 103 MG/DL (70-110)
[2017-05-03 16:33] VITALS: BP 129/70
[2017-05-03] MEDS: PARoxetine HCL 20 MG TABLET PO SCH (20:23)
[2017-05-03] MEDS: PRAVASTATIN SODIUM 40 MG TABLET PO SCH (20:23)
[2017-05-03] MEDS: ARIPiprazole 15 MG TABLET PO SCH (20:23)
[2017-05-03] MEDS: TraZODone HCL 50 MG TABLET PO SCH (20:24)
[2017-05-04 05:00] VITALS: BP 140/99
[2017-05-04 05:48] LABS: GLUCOSE,POINT OF CARE 106 MG/DL (70-110)
[2017-05-04] MEDS: INSULIN ASPART 100 UNITS/ML SQ PRN (06:42)
[2017-05-04] MEDS: MetFORMIN HCL 500 MG TABLET PO SCH ×2 (06:58→17:14)
[2017-05-04 09:00] VITALS: BP 140/77
[2017-05-04] MEDS: THIAMINE HCL 100 MG TABLET PO SCH ×2 (09:07→16:15)
[2017-05-04] MEDS: LISINOPRIL 20 MG TABLET PO SCH (09:07)
[2017-05-04] MEDS: MULTIVITAMINS WITH MINERALS, THERAPEUTIC TABLET PO SCH (09:08)
[2017-05-04] MEDS: ASPIRIN 81 MG CHEWABLE TABLET PO SCH (09:08)
[2017-05-04] MEDS: FOLIC ACID 1 MG TABLET PO SCH (09:08)
[2017-05-04] MEDS: AmLODIPine BESYLATE 5 MG TABLET PO SCH (09:08)
[2017-05-04] MEDS: OXYBUTYNIN CHLORIDE 5 MG TABLET PO SCH ×2 (09:09→16:15)
[2017-05-04 16:22] LABS: GLUCOSE COMMENT 1 Received Meds; GLUCOSE,POINT OF CARE 134 MG/DL (70-110)
[2017-05-04 19:31] VITALS: BP 125/75
[2017-05-04] MEDS: TraZODone HCL 50 MG TABLET PO SCH (20:18)
[2017-05-04] MEDS: PARoxetine HCL 20 MG TABLET PO SCH (20:18)
[2017-05-04] MEDS: PRAVASTATIN SODIUM 40 MG TABLET PO SCH (20:18)
[2017-05-04] MEDS: ARIPiprazole 15 MG TABLET PO SCH (20:18)
[2017-05-05 06:07] LABS: GLUCOSE,POINT OF CARE 105 MG/DL (70-110)
[2017-05-05] MEDS: MetFORMIN HCL 500 MG TABLET PO SCH ×2 (06:42→17:56)
[2017-05-05] MEDS: THIAMINE HCL 100 MG TABLET PO SCH ×2 (09:05→16:48)
[2017-05-05] MEDS: MULTIVITAMINS WITH MINERALS, THERAPEUTIC TABLET PO SCH (09:05)
[2017-05-05] MEDS: FOLIC ACID 1 MG TABLET PO SCH (09:06)
[2017-05-05] MEDS: AmLODIPine BESYLATE 5 MG TABLET PO SCH (09:06)
[2017-05-05] MEDS: ASPIRIN 81 MG CHEWABLE TABLET PO SCH (09:06)
[2017-05-05] MEDS: LISINOPRIL 20 MG TABLET PO SCH (09:06)
[2017-05-05] MEDS: OXYBUTYNIN CHLORIDE 5 MG TABLET PO SCH ×2 (09:06→16:48)
[2017-05-05 10:21] VITALS: BP 141/75
[2017-05-05 16:52] LABS: GLUCOSE,POINT OF CARE 122 MG/DL (70-110)
[2017-05-05 16:55] VITALS: BP 147/96
[2017-05-05] MEDS: PRAVASTATIN SODIUM 40 MG TABLET PO SCH (20:22)
[2017-05-05] MEDS: PARoxetine HCL 20 MG TABLET PO SCH (20:23)
[2017-05-05] MEDS: ARIPiprazole 15 MG TABLET PO SCH (20:23)
[2017-05-05] MEDS: TraZODone HCL 50 MG TABLET PO SCH (20:23)
[2017-05-06 06:07] LABS: GLUCOSE,POINT OF CARE 91 MG/DL (70-110)
[2017-05-06 06:49] VITALS: BP 135/88
[2017-05-06] MEDS: MetFORMIN HCL 500 MG TABLET PO SCH ×2 (06:52→16:46)
[2017-05-06] MEDS: MULTIVITAMINS WITH MINERALS, THERAPEUTIC TABLET PO SCH (10:58)
[2017-05-06] MEDS: LISINOPRIL 20 MG TABLET PO SCH (10:58)
[2017-05-06] MEDS: FOLIC ACID 1 MG TABLET PO SCH (10:58)
[2017-05-06] MEDS: THIAMINE HCL 100 MG TABLET PO SCH ×2 (10:58→16:46)
[2017-05-06] MEDS: OXYBUTYNIN CHLORIDE 5 MG TABLET PO SCH ×2 (10:59→16:45)
[2017-05-06] MEDS: AmLODIPine BESYLATE 5 MG TABLET PO SCH (10:59)
[2017-05-06] MEDS: ASPIRIN 81 MG CHEWABLE TABLET PO SCH (10:59)
[2017-05-06 12:56] VITALS: BP 144/99
[2017-05-06 16:57] LABS: GLUCOSE,POINT OF CARE 112 MG/DL (70-110)
[2017-05-06 19:27] VITALS: BP 125/79
[2017-05-06] MEDS: PRAVASTATIN SODIUM 40 MG TABLET PO SCH (21:50)
[2017-05-06] MEDS: ARIPiprazole 15 MG TABLET PO SCH (21:50)
[2017-05-06] MEDS: PARoxetine HCL 20 MG TABLET PO SCH (21:51)
[2017-05-06] MEDS: TraZODone HCL 50 MG TABLET PO SCH (21:51)
[2017-05-07 05:52] LABS: GLUCOSE,POINT OF CARE 100 MG/DL (70-110)
[2017-05-07 06:41] VITALS: BP 139/90
[2017-05-07] MEDS: MetFORMIN HCL 500 MG TABLET PO SCH ×2 (07:14→17:29)
[2017-05-07 08:00] VITALS: BP 143/79
[2017-05-07] MEDS: LISINOPRIL 20 MG TABLET PO SCH (09:50)
[2017-05-07] MEDS: OXYBUTYNIN CHLORIDE 5 MG TABLET PO SCH ×2 (09:50→17:29)
[2017-05-07] MEDS: AmLODIPine BESYLATE 5 MG TABLET PO SCH (09:51)
[2017-05-07] MEDS: MULTIVITAMINS WITH MINERALS, THERAPEUTIC TABLET PO SCH (09:51)
[2017-05-07] MEDS: THIAMINE HCL 100 MG TABLET PO SCH ×2 (09:51→17:29)
[2017-05-07] MEDS: ASPIRIN 81 MG CHEWABLE TABLET PO SCH (09:51)
[2017-05-07] MEDS: FOLIC ACID 1 MG TABLET PO SCH (09:51)
[2017-05-07 17:27] LABS: GLUCOSE,POINT OF CARE 111 MG/DL (70-110)
[2017-05-07 17:29] VITALS: BP 129/66
[2017-05-07] MEDS: ARIPiprazole 15 MG TABLET PO SCH (21:53)
[2017-05-07] MEDS: TraZODone HCL 50 MG TABLET PO SCH (21:53)
[2017-05-07] MEDS: PARoxetine HCL 20 MG TABLET PO SCH (21:54)
[2017-05-07] MEDS: PRAVASTATIN SODIUM 40 MG TABLET PO SCH (21:54)
[2017-05-08 05:47] LABS: GLUCOSE,POINT OF CARE 91 MG/DL (70-110)
[2017-05-08] MEDS: MetFORMIN HCL 500 MG TABLET PO SCH ×2 (06:59→17:03)
[2017-05-08 07:02] VITALS: BP 133/84
[2017-05-08 08:30] VITALS: BP 135/75
[2017-05-08] MEDS: ASPIRIN 81 MG CHEWABLE TABLET PO SCH (09:47)
[2017-05-08] MEDS: FOLIC ACID 1 MG TABLET PO SCH (09:48)
[2017-05-08] MEDS: OXYBUTYNIN CHLORIDE 5 MG TABLET PO SCH ×2 (09:48→17:02)
[2017-05-08] MEDS: THIAMINE HCL 100 MG TABLET PO SCH ×2 (09:48→17:03)
[2017-05-08] MEDS: AmLODIPine BESYLATE 5 MG TABLET PO SCH (09:48)
[2017-05-08] MEDS: MULTIVITAMINS WITH MINERALS, THERAPEUTIC TABLET PO SCH (09:48)
[2017-05-08] MEDS: LISINOPRIL 20 MG TABLET PO SCH (09:49)
[2017-05-08 17:07] LABS: GLUCOSE,POINT OF CARE 110 MG/DL (70-110)
[2017-05-08 18:07] VITALS: BP 126/69
[2017-05-08] MEDS: ARIPiprazole 15 MG TABLET PO SCH (20:39)
[2017-05-08] MEDS: TraZODone HCL 50 MG TABLET PO SCH (20:40)
[2017-05-08] MEDS: PARoxetine HCL 20 MG TABLET PO SCH (20:41)
[2017-05-08] MEDS: PRAVASTATIN SODIUM 40 MG TABLET PO SCH (21:17)
[2017-05-09 04:23] VITALS: BP 151/91
[2017-05-09 05:27] LABS: GLUCOSE COMMENT 1 FASTING; GLUCOSE,POINT OF CARE 86 MG/DL (70-110)
[2017-05-09] MEDS: MetFORMIN HCL 500 MG TABLET PO SCH ×2 (06:35→16:25)
[2017-05-09 08:00] VITALS: BP 138/77
[2017-05-09] MEDS: AmLODIPine BESYLATE 5 MG TABLET PO SCH (08:53)
[2017-05-09] MEDS: ASPIRIN 81 MG CHEWABLE TABLET PO SCH (08:53)
[2017-05-09] MEDS: FOLIC ACID 1 MG TABLET PO SCH (08:53)
[2017-05-09] MEDS: THIAMINE HCL 100 MG TABLET PO SCH ×2 (08:53→16:25)
[2017-05-09] MEDS: MULTIVITAMINS WITH MINERALS, THERAPEUTIC TABLET PO SCH (08:53)
[2017-05-09] MEDS: OXYBUTYNIN CHLORIDE 5 MG TABLET PO SCH ×2 (08:54→16:25)
[2017-05-09] MEDS: LISINOPRIL 20 MG TABLET PO SCH (08:55)
[2017-05-09 16:32] LABS: GLUCOSE COMMENT 1 Received Meds; GLUCOSE,POINT OF CARE 92 MG/DL (70-110)
[2017-05-09 17:35] VITALS: BP 131/72
[2017-05-09] MEDS: TraZODone HCL 50 MG TABLET PO SCH (21:19)
[2017-05-09] MEDS: ARIPiprazole 15 MG TABLET PO SCH (21:19)
[2017-05-09] MEDS: PRAVASTATIN SODIUM 40 MG TABLET PO SCH (21:19)
[2017-05-09] MEDS: PARoxetine HCL 20 MG TABLET PO SCH (21:20)
[2017-05-10 02:35] VITALS: BP 145/86
[2017-05-10 06:13] LABS: GLUCOSE,POINT OF CARE 117 MG/DL (70-110)
[2017-05-10] MEDS: MetFORMIN HCL 500 MG TABLET PO SCH ×2 (07:08→16:19)
[2017-05-10 08:45] VITALS: BP 154/101
[2017-05-10] MEDS: AmLODIPine BESYLATE 5 MG TABLET PO SCH (09:04)
[2017-05-10] MEDS: OXYBUTYNIN CHLORIDE 5 MG TABLET PO SCH ×2 (09:05→16:19)
[2017-05-10] MEDS: FOLIC ACID 1 MG TABLET PO SCH (09:05)
[2017-05-10] MEDS: LISINOPRIL 20 MG TABLET PO SCH (09:05)
[2017-05-10] MEDS: ASPIRIN 81 MG CHEWABLE TABLET PO SCH (09:05)
[2017-05-10] MEDS: THIAMINE HCL 100 MG TABLET PO SCH ×2 (09:05→16:19)
[2017-05-10] MEDS: MULTIVITAMINS WITH MINERALS, THERAPEUTIC TABLET PO SCH (09:05)
[2017-05-10 16:37] LABS: GLUCOSE,POINT OF CARE 115 MG/DL (70-110)
[2017-05-10 17:00] VITALS: BP 136/76
[2017-05-10] MEDS: ARIPiprazole 15 MG TABLET PO SCH (20:26)
[2017-05-10] MEDS: TraZODone HCL 50 MG TABLET PO SCH (20:27)
[2017-05-10] MEDS: PARoxetine HCL 20 MG TABLET PO SCH (20:27)
[2017-05-10] MEDS: PRAVASTATIN SODIUM 40 MG TABLET PO SCH (20:27)
[2017-05-11 02:38] VITALS: BP 146/84
[2017-05-11 05:37] LABS: GLUCOSE,POINT OF CARE 99 MG/DL (70-110)
[2017-05-11] MEDS: INSULIN ASPART 100 UNITS/ML SQ PRN ×2 (07:03→17:16)
[2017-05-11] MEDS: MetFORMIN HCL 500 MG TABLET PO SCH ×2 (07:03→16:57)
[2017-05-11 08:00] VITALS: BP 132/87
[2017-05-11] MEDS: OXYBUTYNIN CHLORIDE 5 MG TABLET PO SCH ×2 (09:50→16:57)
[2017-05-11] MEDS: MULTIVITAMINS WITH MINERALS, THERAPEUTIC TABLET PO SCH (09:50)
[2017-05-11] MEDS: FOLIC ACID 1 MG TABLET PO SCH (09:50)
[2017-05-11] MEDS: ASPIRIN 81 MG CHEWABLE TABLET PO SCH (09:50)
[2017-05-11] MEDS: THIAMINE HCL 100 MG TABLET PO SCH ×2 (09:50→16:57)
[2017-05-11] MEDS: AmLODIPine BESYLATE 5 MG TABLET PO SCH (09:51)
[2017-05-11] MEDS: LISINOPRIL 20 MG TABLET PO SCH (09:52)
[2017-05-11 16:44] VITALS: BP 130/76
[2017-05-11 17:07] LABS: GLUCOSE,POINT OF CARE 187 MG/DL (70-110)
[2017-05-11] MEDS: ARIPiprazole 15 MG TABLET PO SCH (20:15)
[2017-05-11] MEDS: TraZODone HCL 50 MG TABLET PO SCH (20:16)
[2017-05-11] MEDS: PARoxetine HCL 20 MG TABLET PO SCH (20:16)
[2017-05-11] MEDS: PRAVASTATIN SODIUM 40 MG TABLET PO SCH (20:16)
[2017-05-12 06:02] VITALS: BP 134/78
[2017-05-12] MEDS: MetFORMIN HCL 500 MG TABLET PO SCH ×2 (06:41→17:20)
[2017-05-12 08:00] VITALS: BP 121/68
[2017-05-12] MEDS: OXYBUTYNIN CHLORIDE 5 MG TABLET PO SCH ×2 (08:31→17:20)
[2017-05-12] MEDS: THIAMINE HCL 100 MG TABLET PO SCH (08:31)
[2017-05-12] MEDS: ASPIRIN 81 MG CHEWABLE TABLET PO SCH (08:34)
[2017-05-12] MEDS: LISINOPRIL 20 MG TABLET PO SCH (08:34)
[2017-05-12] MEDS: MULTIVITAMINS WITH MINERALS, THERAPEUTIC TABLET PO SCH (08:34)
[2017-05-12] MEDS: FOLIC ACID 1 MG TABLET PO SCH (08:34)
[2017-05-12] MEDS: AmLODIPine BESYLATE 5 MG TABLET PO SCH (08:34)
[2017-05-12 17:29] VITALS: BP 127/88
[2017-05-12] MEDS ORDERED: ARIP15TA2 PO (17:36)
[2017-05-12] MEDS ORDERED: PARO-37 PO (17:36)
[2017-05-12] MEDS ORDERED: TRAZ-144 PO (17:36)
[2017-05-12 17:52] LABS: GLUCOSE COMMENT 1 Received Meds; GLUCOSE,POINT OF CARE 118 MG/DL (70-110)
[2017-05-12] MEDS: TraZODone HCL 50 MG TABLET PO SCH (20:09)
[2017-05-12] MEDS: PRAVASTATIN SODIUM 40 MG TABLET PO SCH (20:09)
[2017-05-12] MEDS: ARIPiprazole 15 MG TABLET PO SCH (20:10)
[2017-05-12] MEDS: PARoxetine HCL 20 MG TABLET PO SCH (20:10)
[2017-05-13 04:50] VITALS: BP 139/77
[2017-05-13 06:02] LABS: GLUCOSE,POINT OF CARE 91 MG/DL (70-110)
[2017-05-13] MEDS: INSULIN ASPART 100 UNITS/ML SQ PRN (07:01)
[2017-05-13] MEDS: MetFORMIN HCL 500 MG TABLET PO SCH (07:01)
[2017-05-13] MEDS: ASPIRIN 81 MG CHEWABLE TABLET PO SCH (09:06)
[2017-05-13] MEDS: LISINOPRIL 20 MG TABLET PO SCH (09:06)
[2017-05-13] MEDS: AmLODIPine BESYLATE 5 MG TABLET PO SCH (09:06)
[2017-05-13] MEDS: OXYBUTYNIN CHLORIDE 5 MG TABLET PO SCH (09:06)
[2017-05-13] MEDS: MULTIVITAMINS WITH MINERALS, THERAPEUTIC TABLET PO SCH (09:06)
[2017-05-13 15:17] VITALS: BP 128/82
== END 2017-05-13 15:00 | disposition home or self-care (01) | DRG 751 ==
LOC: 3EI 04-29 00:30
PROVIDERS: ADMIT Psychiatry & Neurology Psychiatry; ATTEND Psychiatry & Neurology Psychiatry
DX: F33.2 Major depressive disorder, recurrent severe without psychotic features (principal); E11.9 Type 2 diabetes mellitus without complications; I10 Essential (primary) hypertension; E03.9 Hypothyroidism, unspecified; E66.9 Obesity, unspecified; E78.5 Hyperlipidemia, unspecified; G47.00 Insomnia, unspecified; K21.9 Gastro-esophageal reflux disease without esophagitis; I25.10 Atherosclerotic heart disease of native coronary artery without angina pectoris; Z68.36 Body mass index [BMI] 36.0-36.9, adult
CPT/HCPCS: 82962; 84436; 84439; 84443; 87081; 90471; 97161; 97165

== ENCOUNTER 2017-12-17 10:33 | Emergency (ER) | payer MEDICARE, OTHER ==
[~2017-12-17] VITALS: Ht 162.6 cm; Wt 105.0 kg
[~2017-12-17 10:33] MED LIST changes: -LEVO75 PO; -METF500T4 PO; +METF500T6 PO; -TRAZ-144 PO; +TRAZ-219 PO
[2017-12-17 10:54] VITALS: BP 150/100
[2017-12-17 11:26] LABS: BASOPHILS % (AUTO) 0.7 % (0.0-2.0); EOSINOPHILS % (AUTO) 1.3 % (1.0-6.0); HEMATOCRIT 41.8 % (36-46); HEMOGLOBIN 14.2 g/dL (12.0-16.0); LYMPHOCYTES # (AUTO) 1.5 K/uL (1.0-4.8); LYMPHOCYTES % (AUTO) 17.8 % (22.0-44.0); MEAN CORPUSCULAR HEMOGLOBIN 29.1 pg (26.0-34.0); MEAN CORPUSCULAR HGB CONC 33.9 G/dL (31.0-37.0); MEAN CORPUSCULAR VOLUME 86 fL (80-100); MONOCYTES # (AUTO) 0.4 K/uL (0.1-1.0); MONOCYTES % (AUTO) 4.9 % (2.0-9.0); NEUTROPHILS # (AUTO) 6.3 K/uL (1.8-7.7); NEUTROPHILS % (AUTO) 75.3 % (40.0-70.0); PLATELET COUNT (AUTO) 252 K/uL (150-450); RED BLOOD CELL COUNT(AUTO) 4.87 MIL/uL (4.00-5.20); RED CELL DISTRIBUTION WIDTH 15.6 % (11.5-14.5)
[2017-12-17 11:34] LABS: CALCIUM, TOTAL 8.7 mg/dL (8.8-10.5); CREATININE 0.95 mg/dL (0.60-1.30); POTASSIUM 4.2 mmol/L (3.5-5.1)
[2017-12-17 11:39] LABS: ALBUMIN 3.2 g/dL (3.4-5.0); BILIRUBIN,TOTAL 0.3 mg/dL (0.1-1.0)
[2017-12-17] MEDS ORDERED: SODIUM CHLORIDE 0.9% 100 ML ONE (12:13)
[2017-12-17] MEDS ORDERED: IOVERSOL 350 MG/ML 150 ML VIAL ONE (12:13)
== END 2017-12-17 14:55 | disposition home or self-care (01) ==
LOC: EMS 10:34
DX: R10.9 Unspecified abdominal pain (principal); R16.1 Splenomegaly, not elsewhere classified; E27.9 Disorder of adrenal gland, unspecified; E11.9 Type 2 diabetes mellitus without complications; K21.9 Gastro-esophageal reflux disease without esophagitis; I11.9 Hypertensive heart disease without heart failure; E78.00 Pure hypercholesterolemia, unspecified; E03.9 Hypothyroidism, unspecified; G89.29 Other chronic pain; F17.210 Nicotine dependence, cigarettes, uncomplicated; Z88.0 Allergy status to penicillin; Z88.5 Allergy status to narcotic agent
CPT/HCPCS: 36415; 74177; 80053; 82962; 83690; 84484; 85025; 99285; J7050; Q9967

== ENCOUNTER 2018-01-08 14:32 | Emergency (ER) | payer MEDICARE, OTHER ==
[~2018-01-08] VITALS: Ht 165.1 cm; Wt 100.0 kg
[2018-01-08 16:47] LABS: CALCIUM, TOTAL 9.4 mg/dL (8.8-10.5); CREATININE 1.15 mg/dL (0.60-1.30); POTASSIUM 3.7 mmol/L (3.5-5.1)
[2018-01-08 16:54] LABS: ALBUMIN 3.7 g/dL (3.4-5.0); BILIRUBIN,TOTAL 0.3 mg/dL (0.1-1.0); TOTAL PROTEIN, SERUM 7.7 g/dL (6.4-8.2)
[2018-01-08 16:55] LABS: BASOPHILS % (AUTO) 1.1 % (0.0-2.0); EOSINOPHILS % (AUTO) 2.1 % (1.0-6.0); HEMATOCRIT 44.5 % (36-46); HEMOGLOBIN 15.1 g/dL (12.0-16.0); LYMPHOCYTES # (AUTO) 1.8 K/uL (1.0-4.8); LYMPHOCYTES % (AUTO) 21.4 % (22.0-44.0); MEAN CORPUSCULAR HEMOGLOBIN 28.9 pg (26.0-34.0); MEAN CORPUSCULAR VOLUME 85 fL (80-100); MONOCYTES # (AUTO) 0.4 K/uL (0.1-1.0); MONOCYTES % (AUTO) 5.4 % (2.0-9.0); NEUTROPHILS # (AUTO) 5.8 K/uL (1.8-7.7); PLATELET COUNT (AUTO) 242 K/uL (150-450); RED BLOOD CELL COUNT(AUTO) 5.23 MIL/uL (4.00-5.20); RED CELL DISTRIBUTION WIDTH 15.5 % (11.5-14.5)
[2018-01-08 18:12] LABS: APPEARANCE,URINE CLOUDY (CLEAR); BILIRUBIN,URINE NEGATIVE (NEGATIVE); GLUCOSE, URINE (UA) NEGATIVE (NEGATIVE); KETONES,URINE NEGATIVE (NEGATIVE); LEUKOCYTE ESTERASE ,URINE MODERATE (NEGATIVE); OCCULT BLOOD,URINE TRACE (NEGATIVE); PROTEIN,URINE NEGATIVE (NEGATIVE); UROBILINOGEN,URINE 0.2 mg/dL (<=1.0)
[2018-01-08 18:34] LABS: BACTERIA,URINE Many /HPF (None Seen); NITRATE,URINE POSITIVE (NEGATIVE); SQUAMOUS EPITHELIAL CELL,UR Few /LPF (None Seen)
[2018-01-08 19:15] VITALS: BP 119/79
== END 2018-01-08 19:30 | disposition home or self-care (01) ==
LOC: EMS 14:33
DX: N39.0 Urinary tract infection, site not specified (principal); I10 Essential (primary) hypertension; E78.00 Pure hypercholesterolemia, unspecified; E03.9 Hypothyroidism, unspecified; E11.9 Type 2 diabetes mellitus without complications; K21.9 Gastro-esophageal reflux disease without esophagitis; F17.210 Nicotine dependence, cigarettes, uncomplicated; Z90.49 Acquired absence of other specified parts of digestive tract; Z88.0 Allergy status to penicillin; Z88.5 Allergy status to narcotic agent; Z88.8 Allergy status to other drugs, medicaments and biological substances
CPT/HCPCS: 87086; 99284

== ENCOUNTER 2018-01-19 09:20 | Emergency (ER) | payer MEDICARE, OTHER ==
[~2018-01-19] VITALS: Ht 165.1 cm; Wt 84.1 kg
[~2018-01-19 09:20] MED LIST changes: -ASPI-1182 PO
[2018-01-19] MEDS ORDERED: FAMO20 PO (09:39)
[2018-01-19] MEDS ORDERED: LEVO50 PO (09:39)
[2018-01-19] MEDS ORDERED: MECL-111 PO (09:39)
[2018-01-19] MEDS ORDERED: NAPR-58 PO (09:39)
[2018-01-19] MEDS ORDERED: ATOR10TA84 PO (09:39)
[2018-01-19] MEDS ORDERED: LOSA50TA37 PO (09:39)
[2018-01-19] MEDS ORDERED: COMP5 PO (09:39)
[2018-01-19] MEDS ORDERED: VITAD1000 PO (09:39)
[2018-01-19] MEDS ORDERED: HYDR25TA PO (09:39)
[2018-01-19] MEDS ORDERED: ONDA4 PO (09:39)
[2018-01-19] MEDS ORDERED: LOPE2 PO (09:39)
[2018-01-19] MEDS ORDERED: NYST30CR9 TP (09:39)
[2018-01-19] MEDS ORDERED: SODIUM CHLORIDE 0.9% 1,000 ML IV ONE (10:00)
[2018-01-19] MEDS ORDERED: KETOROLAC TROMETHAMINE 30 MG/ML VIAL IVP ONE (10:00)
[2018-01-19] MEDS ORDERED: LOPERAMIDE HCL 2 MG CAPSULE PO ONE (10:00)
[2018-01-19 10:09] LABS: BASOPHILS % (AUTO) 0.9 % (0.0-2.0); EOSINOPHILS % (AUTO) 1.4 % (1.0-6.0); HEMATOCRIT 41.9 % (36-46); HEMOGLOBIN 14.1 g/dL (12.0-16.0); LYMPHOCYTES # (AUTO) 1.1 K/uL (1.0-4.8); LYMPHOCYTES % (AUTO) 19.3 % (22.0-44.0); MEAN CORPUSCULAR HEMOGLOBIN 28.8 pg (26.0-34.0); MEAN CORPUSCULAR HGB CONC 33.7 G/dL (31.0-37.0); MEAN CORPUSCULAR VOLUME 86 fL (80-100); MONOCYTES # (AUTO) 0.2 K/uL (0.1-1.0); MONOCYTES % (AUTO) 4.3 % (2.0-9.0); NEUTROPHILS # (AUTO) 4.2 K/uL (1.8-7.7); NEUTROPHILS % (AUTO) 74.1 % (40.0-70.0); PLATELET COUNT (AUTO) 199 K/uL (150-450); RED CELL DISTRIBUTION WIDTH 15.3 % (11.5-14.5)
[2018-01-19 10:23] LABS: CALCIUM, TOTAL 8.7 mg/dL (8.8-10.5); CREATININE 0.95 mg/dL (0.60-1.30); POTASSIUM 4.1 mmol/L (3.5-5.1)
[2018-01-19 10:27] LABS: ALBUMIN 3.1 g/dL (3.4-5.0); BILIRUBIN,TOTAL 0.2 mg/dL (0.1-1.0); TOTAL PROTEIN, SERUM 6.8 g/dL (6.4-8.2)
[2018-01-19 11:42] VITALS: BP 162/80
== END 2018-01-19 12:36 | disposition home or self-care (01) ==
LOC: EMS 09:22
DX: R10.11 Right upper quadrant pain (principal); R10.12 Left upper quadrant pain; R19.7 Diarrhea, unspecified; K21.9 Gastro-esophageal reflux disease without esophagitis; I11.9 Hypertensive heart disease without heart failure; E03.9 Hypothyroidism, unspecified; G89.29 Other chronic pain; E11.9 Type 2 diabetes mellitus without complications; F41.9 Anxiety disorder, unspecified; F17.210 Nicotine dependence, cigarettes, uncomplicated; Z90.710 Acquired absence of both cervix and uterus; Z96.659 Presence of unspecified artificial knee joint; Z90.49 Acquired absence of other specified parts of digestive tract; Z88.0 Allergy status to penicillin; Z88.5 Allergy status to narcotic agent
CPT/HCPCS: 36415; 80053; 82962; 83690; 84484; 85025; 93005; 96361; 96374; 99285; J1885; J7030

== ENCOUNTER 2018-03-23 20:51 | Emergency (ER) | payer MEDICARE, OTHER ==
[~2018-03-23] VITALS: Ht 165.1 cm; Wt 97.7 kg
[~2018-03-23 20:51] MED LIST changes: -AMLO-511 PO; -ARIP15TA2 PO; +ATOR10TA84 PO; +COMP5 PO; +FAMO20 PO; +HYDR25TA PO; +LEVO50 PO; -LISI-662 PO; +LOPE2 PO; +LOSA50TA25 PO; +MECL-111 PO; -METF500T6 PO; +NAPR-58 PO; +NYST30CR9 TP; +ONDA4 PO; -OXYB5 PO; -PARO-37 PO; -PRAV40TA4 PO; -TRAZ-219 PO; +VITAD1000 PO
[2018-03-23 21:34] LABS: GLUCOSE,POINT OF CARE 158 MG/DL (70-110)
[2018-03-23 22:07] LABS: BASOPHILS % (AUTO) 1.2 % (0.0-2.0); EOSINOPHILS % (AUTO) 1.4 % (1.0-6.0); HEMATOCRIT 41.6 % (36-46); HEMOGLOBIN 14.3 g/dL (12.0-16.0); LYMPHOCYTES # (AUTO) 1.9 K/uL (1.0-4.8); MEAN CORPUSCULAR HEMOGLOBIN 29.3 pg (26.0-34.0); MEAN CORPUSCULAR HGB CONC 34.4 G/dL (31.0-37.0); MEAN CORPUSCULAR VOLUME 85 fL (80-100); MONOCYTES # (AUTO) 0.4 K/uL (0.1-1.0); MONOCYTES % (AUTO) 4.5 % (2.0-9.0); NEUTROPHILS # (AUTO) 6.9 K/uL (1.8-7.7); NEUTROPHILS % (AUTO) 72.9 % (40.0-70.0); PLATELET COUNT (AUTO) 254 K/uL (150-450); RED CELL DISTRIBUTION WIDTH 16.2 % (11.5-14.5)
[2018-03-23 22:25] LABS: CALCIUM, TOTAL 8.8 mg/dL (8.8-10.5); CREATININE 1.06 mg/dL (0.60-1.30); POTASSIUM 3.5 mmol/L (3.5-5.1)
[2018-03-23] MEDS ORDERED: KETOROLAC TROMETHAMINE 60 MG/2 ML VIAL IM ONE (22:30)
[2018-03-23 22:32] LABS: ALBUMIN 3.2 g/dL (3.4-5.0); BILIRUBIN,TOTAL 0.2 mg/dL (0.1-1.0); TOTAL PROTEIN, SERUM 7.4 g/dL (6.4-8.2)
[2018-03-23 22:35] LABS: APPEARANCE,URINE CLOUDY (CLEAR); BILIRUBIN,URINE NEGATIVE (NEGATIVE); GLUCOSE, URINE (UA) NEGATIVE (NEGATIVE); KETONES,URINE NEGATIVE (NEGATIVE); LEUKOCYTE ESTERASE ,URINE TRACE (NEGATIVE); NITRATE,URINE POSITIVE (NEGATIVE); OCCULT BLOOD,URINE TRACE (NEGATIVE); PROTEIN,URINE POS 1+ (NEGATIVE); UROBILINOGEN,URINE 0.2 mg/dL (<=1.0)
[2018-03-23 22:42] LABS: BACTERIA,URINE Moderate /HPF (None Seen); RBC,URINE 0-2 /HPF (0-2); SQUAMOUS EPITHELIAL CELL,UR Moderate /LPF (None Seen)
[2018-03-23] MEDS ORDERED: LIDOCAINE/PF 1% 2 ML VIAL IM ONE (23:00)
[2018-03-23] MEDS ORDERED: CefTRIAXone SODIUM 1 GM/VIAL IM ONE (23:00)
[2018-03-24 02:06] VITALS: BP 136/78
== END 2018-03-24 02:22 | disposition home or self-care (01) ==
LOC: EMS 20:52
DX: N39.0 Urinary tract infection, site not specified (principal); F41.9 Anxiety disorder, unspecified; F32.9 Major depressive disorder, single episode, unspecified; E11.9 Type 2 diabetes mellitus without complications; K21.9 Gastro-esophageal reflux disease without esophagitis; I11.9 Hypertensive heart disease without heart failure; E78.00 Pure hypercholesterolemia, unspecified; E03.9 Hypothyroidism, unspecified; G89.29 Other chronic pain; F17.210 Nicotine dependence, cigarettes, uncomplicated; Z90.49 Acquired absence of other specified parts of digestive tract; Z90.710 Acquired absence of both cervix and uterus; Z96.659 Presence of unspecified artificial knee joint; Z88.5 Allergy status to narcotic agent; Z88.0 Allergy status to penicillin; Z88.8 Allergy status to other drugs, medicaments and biological substances
CPT/HCPCS: 36415; 74019; 80053; 81001; 82962; 83690; 84484; 85025; 87077; 87086; 87186; 93005; 96372; 99285; J0696; J1885; J3490

== ENCOUNTER 2018-09-14 11:45 | Emergency (ER) | payer MEDICARE, OTHER ==
[~2018-09-14] VITALS: Ht 165.1 cm; Wt 111.4 kg
[~2018-09-14 11:45] MED LIST changes: +CIP250 PO; -LOSA50TA25 PO; +LOSA50TA64 PO
[2018-09-14 12:14] LABS: GLUCOSE,POINT OF CARE 89 MG/DL (70-110)
[2018-09-14] MEDS ORDERED: ESCI10TA PO (12:30)
[2018-09-14] MEDS ORDERED: VALS160T2 PO (12:30)
[2018-09-14 13:11] LABS: BASOPHILS % (AUTO) 0.3 % (0.0-2.0); HEMATOCRIT 46.1 % (36-46); HEMOGLOBIN 15.3 g/dL (12.0-16.0); LYMPHOCYTES # (AUTO) 1.8 K/uL (1.0-4.8); LYMPHOCYTES % (AUTO) 19.9 % (22.0-44.0); MEAN CORPUSCULAR HEMOGLOBIN 29.6 pg (26.0-34.0); MEAN CORPUSCULAR HGB CONC 33.1 G/dL (31.0-37.0); MEAN CORPUSCULAR VOLUME 90 fL (80-100); MONOCYTES # (AUTO) 0.4 K/uL (0.1-1.0); MONOCYTES % (AUTO) 4.5 % (2.0-9.0); NEUTROPHILS # (AUTO) 6.7 K/uL (1.8-7.7); NEUTROPHILS % (AUTO) 74.3 % (40.0-70.0); PLATELET COUNT (AUTO) 244 K/uL (150-450); RED BLOOD CELL COUNT(AUTO) 5.15 MIL/uL (4.00-5.20); RED CELL DISTRIBUTION WIDTH 14.6 % (11.5-14.5)
[2018-09-14 13:19] LABS: CALCIUM, TOTAL 10.1 mg/dL (8.8-10.5); POTASSIUM 4.4 mmol/L (3.5-5.1)
[2018-09-14 13:25] LABS: ALBUMIN 3.9 g/dL (3.4-5.0); BILIRUBIN,TOTAL 0.4 mg/dL (0.1-1.0); TOTAL PROTEIN, SERUM 7.9 g/dL (6.4-8.2)
[2018-09-14] MEDS: LOPERAMIDE HCL 2 MG CAPSULE PO ONE (13:33)
[2018-09-14 13:59] LABS: APPEARANCE,URINE CLOUDY (CLEAR); BILIRUBIN,URINE NEGATIVE (NEGATIVE); GLUCOSE, URINE (UA) NEGATIVE (NEGATIVE); KETONES,URINE NEGATIVE (NEGATIVE); LEUKOCYTE ESTERASE ,URINE LARGE (NEGATIVE); NITRATE,URINE POSITIVE (NEGATIVE); OCCULT BLOOD,URINE SMALL (NEGATIVE); PROTEIN,URINE NEGATIVE (NEGATIVE); UROBILINOGEN,URINE 0.2 mg/dL (<=1.0)
[2018-09-14 14:09] LABS: BACTERIA,URINE Moderate /HPF (None Seen); SQUAMOUS EPITHELIAL CELL,UR Rare /LPF (None Seen); WBC,URINE 26-50 /HPF (0-5)
[2018-09-14] MEDS: NITROFURANTOIN/NITROFURAN MAC 100 MG CAPSULE [MACROBID] PO ONE (14:31)
[2018-09-14 14:34] VITALS: BP 132/71
== END 2018-09-14 14:41 | disposition home or self-care (01) ==
LOC: EMS 11:46
DX: N39.0 Urinary tract infection, site not specified (principal); F41.9 Anxiety disorder, unspecified; F32.9 Major depressive disorder, single episode, unspecified; E11.9 Type 2 diabetes mellitus without complications; K21.9 Gastro-esophageal reflux disease without esophagitis; I11.9 Hypertensive heart disease without heart failure; E03.9 Hypothyroidism, unspecified; E78.00 Pure hypercholesterolemia, unspecified; G89.29 Other chronic pain; F17.210 Nicotine dependence, cigarettes, uncomplicated; Z90.710 Acquired absence of both cervix and uterus; Z90.49 Acquired absence of other specified parts of digestive tract; Z88.5 Allergy status to narcotic agent; Z88.0 Allergy status to penicillin; Z88.8 Allergy status to other drugs, medicaments and biological substances
CPT/HCPCS: 87086

== ENCOUNTER 2018-11-04 21:07 | Emergency (ER) | payer MEDICARE, OTHER ==
[~2018-11-04] VITALS: Ht 165.1 cm; Wt 109.1 kg
[~2018-11-04 21:07] MED LIST changes: -CIP250 PO; +ESCI10TA PO; -LOPE2 PO; -LOSA50TA64 PO; -MECL-111 PO; -NYST30CR9 TP; -ONDA4 PO; +VALS160T2 PO
[2018-11-04 23:15] LABS: GLUCOSE,POINT OF CARE 111 MG/DL (70-110)
[2018-11-04 23:28] LABS: BASOPHILS % (AUTO) 1.3 % (0.0-2.0); EOSINOPHILS % (AUTO) 2.5 % (1.0-6.0); HEMATOCRIT 43.3 % (36-46); HEMOGLOBIN 14.3 g/dL (12.0-16.0); LYMPHOCYTES % (AUTO) 25.3 % (22.0-44.0); MEAN CORPUSCULAR HEMOGLOBIN 29.4 pg (26.0-34.0); MEAN CORPUSCULAR VOLUME 89 fL (80-100); MONOCYTES # (AUTO) 0.5 K/uL (0.1-1.0); MONOCYTES % (AUTO) 5.6 % (2.0-9.0); NEUTROPHILS # (AUTO) 5.2 K/uL (1.8-7.7); NEUTROPHILS % (AUTO) 65.3 % (40.0-70.0); PLATELET COUNT (AUTO) 214 K/uL (150-450); RED BLOOD CELL COUNT(AUTO) 4.87 MIL/uL (4.00-5.20); RED CELL DISTRIBUTION WIDTH 14.3 % (11.5-14.5)
[2018-11-04 23:40] LABS: ANION GAP 11 mmol/L (8-16); CALCIUM, TOTAL 9.3 mg/dL (8.8-10.5); CARBON DIOXIDE 26 mmol/L (22-29); CHLORIDE 104 mmol/L (98-107); CREATININE 0.91 mg/dL (0.60-1.30); GLOMERULAR FILTR. RATE CALC > 60 mL/min (>60); GLUCOSE,RANDOM 105 mg/dL (70-110); POTASSIUM 3.6 mmol/L (3.5-5.1); SODIUM SERUM 141 mmol/L (136-145); UREA NITROGEN, BLOOD 21 mg/dL (7-18)
[2018-11-04 23:46] LABS: ALANINE AMINOTRANSFERASE 16 U/L (12-78); ALBUMIN 3.4 g/dL (3.4-5.0); ALKALINE PHOSPHATASE 96 U/L (46-116); ASPARTATE AMINOTRANSFERASE 13 U/L (15-37); BILIRUBIN,TOTAL 0.3 mg/dL (0.1-1.0); TOTAL PROTEIN, SERUM 7.3 g/dL (6.4-8.2)
[2018-11-05] MEDS ORDERED: LORazepam 2 MG TABLET PO ONE (00:15)
[2018-11-05 02:19] LABS: GLUCOSE,POINT OF CARE 97 MG/DL (70-110)
[2018-11-05 06:00] VITALS: BP 158/99
== END 2018-11-05 06:26 | disposition home or self-care (01) ==
LOC: EMS 21:09
DX: R07.89 Other chest pain (principal); R42 Dizziness and giddiness; F41.9 Anxiety disorder, unspecified; R06.02 Shortness of breath; F32.9 Major depressive disorder, single episode, unspecified; K21.9 Gastro-esophageal reflux disease without esophagitis; I11.9 Hypertensive heart disease without heart failure; E78.00 Pure hypercholesterolemia, unspecified; G89.29 Other chronic pain; E03.9 Hypothyroidism, unspecified; F17.200 Nicotine dependence, unspecified, uncomplicated; Z90.49 Acquired absence of other specified parts of digestive tract; Z90.710 Acquired absence of both cervix and uterus; Z88.5 Allergy status to narcotic agent; Z88.0 Allergy status to penicillin; Z88.8 Allergy status to other drugs, medicaments and biological substances
CPT/HCPCS: 36415; 80053; 82962; 84484; 85025; 93005; 99284; G0480

== ENCOUNTER 2018-11-22 17:06 | Emergency (ER) | payer MEDICARE, OTHER ==
[~2018-11-22] VITALS: Ht 165.1 cm; Wt 109.1 kg
[2018-11-22] MEDS ORDERED: METF-960 PO (17:45)
[2018-11-22] MEDS ORDERED: DOXY100C PO (17:45)
[2018-11-22] MEDS ORDERED: BENZ-51 PO (17:45)
[2018-11-22] MEDS ORDERED: BENA20 PO (17:45)
[2018-11-22] MEDS ORDERED: PANT40TA25 PO (17:45)
[2018-11-22 18:13] LABS: BASOPHILS % (AUTO) 0.8 % (0.0-2.0); EOSINOPHILS % (AUTO) 1.4 % (1.0-6.0); HEMATOCRIT 44.2 % (36-46); HEMOGLOBIN 14.5 g/dL (12.0-16.0); LYMPHOCYTES # (AUTO) 2.5 K/uL (1.0-4.8); LYMPHOCYTES % (AUTO) 28.4 % (22.0-44.0); MEAN CORPUSCULAR HEMOGLOBIN 28.6 pg (26.0-34.0); MEAN CORPUSCULAR HGB CONC 32.8 G/dL (31.0-37.0); MEAN CORPUSCULAR VOLUME 87 fL (80-100); MONOCYTES # (AUTO) 0.3 K/uL (0.1-1.0); MONOCYTES % (AUTO) 3.9 % (2.0-9.0); NEUTROPHILS # (AUTO) 5.8 K/uL (1.8-7.7); NEUTROPHILS % (AUTO) 65.5 % (40.0-70.0); PLATELET COUNT (AUTO) 254 K/uL (150-450); RED BLOOD CELL COUNT(AUTO) 5.07 MIL/uL (4.00-5.20); RED CELL DISTRIBUTION WIDTH 14.9 % (11.5-14.5)
[2018-11-22] MEDS ORDERED: ALBUTEROL SULFATE 2.5 MG/0.5 ML NEB SOLUTION NEB ONE (18:15)
[2018-11-22] MEDS ORDERED: IPRATROPIUM BROMIDE 0.5 MG/2.5 ML NEB SOLUTION NEB ONE (18:15)
[2018-11-22 18:36] LABS: CALCIUM, TOTAL 9.2 mg/dL (8.8-10.5); CREATININE 1.09 mg/dL (0.60-1.30); POTASSIUM 3.7 mmol/L (3.5-5.1)
[2018-11-22 18:42] LABS: ALBUMIN 3.4 g/dL (3.4-5.0); BILIRUBIN,TOTAL 0.3 mg/dL (0.1-1.0); TOTAL PROTEIN, SERUM 7.2 g/dL (6.4-8.2)
[2018-11-22] MEDS ORDERED: AZITHROMYCIN 250 MG TABLET PO ONE (19:30)
[2018-11-22 21:28] VITALS: BP 128/68
== END 2018-11-22 21:48 | disposition home or self-care (01) ==
LOC: EMS 17:07
DX: J44.9 Chronic obstructive pulmonary disease, unspecified (principal); R10.11 Right upper quadrant pain; E11.9 Type 2 diabetes mellitus without complications; E03.9 Hypothyroidism, unspecified; E78.00 Pure hypercholesterolemia, unspecified; I11.9 Hypertensive heart disease without heart failure; G89.29 Other chronic pain; K21.9 Gastro-esophageal reflux disease without esophagitis; F32.9 Major depressive disorder, single episode, unspecified; Z90.49 Acquired absence of other specified parts of digestive tract; Z90.710 Acquired absence of both cervix and uterus; Z79.899 Other long term (current) drug therapy; Z88.0 Allergy status to penicillin; Z88.5 Allergy status to narcotic agent; Z88.8 Allergy status to other drugs, medicaments and biological substances
CPT/HCPCS: 93005